=== PATIENT | male | born 1980 | race Two or more races ===

== ENCOUNTER 2022-07-27 21:43 | Emergency (ER) | payer OTHER ==
[~2022-07-27] VITALS: Ht 177.8 cm; Wt 96.2 kg
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
[2022-07-27] MEDS ORDERED: IBUPROFEN 400 MG TABLET ONE (22:26)
[2022-07-27] MEDS ORDERED: TDAP [DIPH/PERTUSSIS/TET] 0.5 ML VIAL IM ONE ×2 (22:26→22:30)
[2022-07-27] MEDS ORDERED: IBUPROFEN 400 MG TABLET PO ONE (22:30)
--- NOTE | 2022-07-27 22:32 | NUR ---
DRESSING APPLIED ON THE AFFECTED AREA
--- NOTE | 2022-07-27 23:15 | NUR ---
PATIENT COMPLAINING ABOUT XRAY NOT BEEN DONE ON HIS LEFT LOWER LEG. HE WAS MADE AWARE THAT ER MD WILL COME TO SEE HIM SOON. PT IS SO UPSET AND YELLING AT THE NURSE. MD MADE AWARE.
--- NOTE | 2022-07-27 23:40 | NUR ---
SEEN BY DR CHONG AT BEDSIDE. XRAY FOR LEFT LOWER LEG ORDERED. FF UP RAD DEPT.
[2022-07-28 03:33] VITALS: BP 134/78
--- NOTE | 2022-07-28 03:33 | NUR ---
Patient discharged to home in stable condition. Written and verbal after care instructions given. Patient verbalizes understanding of instruction.
== END 2022-07-28 03:33 | disposition home or self-care (01) ==
LOC: EDBD 21:49 → ER 21:49
DX: S20.219A Contusion of unspecified front wall of thorax, initial encounter (principal); S90.121A Contusion of right lesser toe(s) without damage to nail, initial encounter; S80.812A Abrasion, left lower leg, initial encounter; V89.2XXA Person injured in unspecified motor-vehicle accident, traffic, initial encounter; Y93.89 Activity, other specified; Y92.89 Other specified places as the place of occurrence of the external cause; Y99.8 Other external cause status
CPT/HCPCS: 71045-TC; 73590-TC; 73660-TC; 90715